=== PATIENT | female | born 1940 | race Caucasian/White ===

== ENCOUNTER 2022-01-08 19:26 | Emergency (ER) | payer MEDICARE, BC ==
[~2022-01-08] VITALS: Ht 165.1 cm; Wt 87.2 kg
[2022-01-08 19:54] VITALS: BP 154/64
[2022-01-08 21:05] LABS: CLARITY,URINE SLIGHTLY CLOUDY (Clear)
[2022-01-08 21:22] LABS: COLOR,URINE ORANGE (Yellow); UA COLLECTION TYPE CLN CATCH MIDSTREAM
[2022-01-08 21:23] LABS: BACTERIA,URINE FEW /HPF (Neg); RBC,URINE NONE SEEN /HPF (0-2); SQUAMOUS EPITHELIAL CELL,UR FEW /LPF (FEW); TRANSITIONAL EPI CELLS,URINE FEW /HPF; WBC CLUMPS,URINE FEW /HPF (NEGATIVE)
[2022-01-08] MEDS ORDERED: CIPR-202 PO (22:01)
[2022-01-08] MEDS ORDERED: ciprofloxacin 250mg tablet PO ONE (22:05)
== END 2022-01-08 22:18 | disposition home or self-care (01) ==
LOC: ER 19:27
DX: N39.0 Urinary tract infection, site not specified (principal); R35.0 Frequency of micturition; Z88.0 Allergy status to penicillin; Z88.2 Allergy status to sulfonamides
CPT/HCPCS: 81001; 87077; 87088; 87186; 99283